=== PATIENT | female | born 1995 | race Two or more races ===

== ENCOUNTER 2019-07-17 17:51 | Emergency (ER) | payer MEDICAID ==
[~2019-07-17] VITALS: Ht 154.9 cm; Wt 59.0 kg
[2019-07-18 00:35] VITALS: BP 128/75
[2019-07-18] MEDS ORDERED: ACETAMINOPHEN 325 MG TAB PO ONE (01:55)
== END 2019-07-18 02:11 | disposition home or self-care (01) ==
LOC: ER 17:55
DX: M79.605 Pain in left leg (principal); M79.604 Pain in right leg
CPT/HCPCS: 73562; 73590

== ENCOUNTER 2022-06-02 22:17 | Emergency (ER) | payer MEDICAID ==
[~2022-06-02] VITALS: Ht 154.9 cm; Wt 59.0 kg
[2022-06-02 23:00] VITALS: BP 122/78
[2022-06-03] MEDS ORDERED: cefTRIAXone SOD 1,000 MG VL IM ONE (01:45)
[2022-06-03] MEDS ORDERED: AMOX500T86 PO (01:45)
== END 2022-06-03 01:55 | disposition home or self-care (01) ==
LOC: ER 22:17
DX: J03.90 Acute tonsillitis, unspecified (principal)
CPT/HCPCS: 96372; 99283; J0696